=== PATIENT | female | born 1980 ===

== ENCOUNTER 2018-11-06 11:04 | Inpatient (IN) | payer MEDICAID, SELFPAY ==
[2018-11-06] MEDS: Lactated Ringer's 1,000 ML IV ONE ×2 (11:45→12:45)
[2018-11-06 11:46] VITALS: BMI 29.7
[2018-11-06] MEDS ORDERED: OXYTOCIN/0.9 % NS 20 UNIT/1,000 ML BAG IV ONE (11:55)
[2018-11-06] MEDS ORDERED: Oxytocin 30 UNIT in NS 500 ml 30 UNITS/500 ML BAG IV ONE (11:55)
[2018-11-06] MEDS ORDERED: ceFAZolin 2 GM in Sodium Chloride 0.9% 100 ML IVPB ONE (12:00)
[2018-11-06 12:15] LABS: BASO % 0.2 % (0.0-2.0); EOS # 0.1 K/uL (0.0-0.7); HEMOGLOBIN 10.4 g/dL (12.0-16.0); LYMPH # 1.7 K/uL (1.0-4.3); LYMPH % 19.5 % (20.0-40.0); MEAN CELL VOLUME 83.6 fl (81.0-99.0); MEAN CORPUSCULAR HEMOGLOBIN 27.6 pg (27.0-31.0); MEAN PLATELET VOLUME 7.7 fl (7.2-11.7); MONO # 0.7 K/uL (0.0-0.8); MONO % 7.8 % (0.0-10.0); NEUT # 6.1 K/uL (1.8-7.0); NEUT % 71.5 % (50.0-75.0); NRBC % 0.1 % (0.0-0.0); RBC 3.78 Mil/uL (3.80-5.20); RED CELL DISTRIBUTION WIDTH 20.7 % (11.5-14.5); WHITE BLOOD COUNT 8.6 K/uL (4.8-10.8)
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
[2018-11-06] MEDS ORDERED: Morphine 5 mg/10 ml preservative-free Inj(Duramorph) ONE (13:21)
[2018-11-06] MEDS ORDERED: Oxycodone/Acetaminophen 5/325 mg Tab PO PRN ×3 (14:23→16:58)
[2018-11-06] MEDS ORDERED: Lactated Ringer's 1,000 ML IV ONE ×2 (14:25→20:54)
[2018-11-06] MEDS ORDERED: Simethicone 80 mg Chewtab PO SCH (16:00)
[2018-11-06] MEDS ORDERED: Influenza Vaccine 60 mcg/0.5 mL SYR (4YR UP) IM ONE (21:15)
[2018-11-06] MEDS: Simethicone 80 mg Chewtab PO SCH (23:21)
[2018-11-07] MEDS: Simethicone 80 mg Chewtab PO SCH ×4 (04:57→22:17)
[2018-11-07 05:59] LABS: HEMOGLOBIN 9.6 g/dL (12.0-16.0); MEAN CELL VOLUME 84.8 fl (81.0-99.0); MEAN CORPUSCULAR HEMOGLOBIN 27.5 pg (27.0-31.0); MEAN CORPUSCULAR HGB CONC 32.4 g/dL (33.0-37.0); RBC 3.48 Mil/uL (3.80-5.20); RED CELL DISTRIBUTION WIDTH 21.1 % (11.5-14.5); WHITE BLOOD COUNT 10.5 K/uL (4.8-10.8)
[2018-11-07] MEDS: Multivitamin With Minerals Tab PO SCH (08:08)
[2018-11-07] MEDS: Oxycodone/Acetaminophen 5/325 mg Tab PO PRN (08:10)
[2018-11-07] MEDS ORDERED: Multivitamin With Minerals Tab PO SCH (09:00)
--- NOTE | 2018-11-07 09:58 | OBDS ---
DELIVERY PERSONNEL Delivery Doctor: Juliane Galaviz MD [place] Carver: Maddie Barrera RN Anesthesiologist: Dr Silver Resident: Dr Sherrie Ac MATERNAL INFORMATION Delivery Anesthesia: Spinal Medications in Delivery: ancef 2G Estimated Blood Loss (ml): 800 Placenta Cultured: No Maternal Complications: None RN Comments: patient delivered girl via r c/s w r tubal ligation. clamped and taken to warmer, examined by Dr Davis. apgars 9 and 9. then brought to mother for skin to skin, infant latched. patient and infant brought to labor and delivery for recovery. both remained in stable condition. Provider Comments: See Op note LABOR SUMMARY EDC: 11/11/2018 00:00 No. Babies in Womb: 1 LABOR INFORMATION Group B Beta Strep: Negative STAGES OF LABOR Stage 3 hrs: 0 Stage 3 min: 1 CSECTION DELIVERY Primary Indication: Repeat Elective CSection Urgency: Elective CSection Incidence: Repeat Labor: No Labor CSection Incision: Lower Uterine Transverse Sterilization Procedure: [place] BABY A INFORMATION Delivery Date/Time: 11/06/2018 13:53 Method of Delivery: Born in Route : No : N/A Forceps: N/A Vacuum Extraction: N/A Shoulder Dystocia : No SHOULDER DYSTOCIA BABY A Infant Delivery Date/Time: 11/06/2018 13:53 PRESENTATION/POSITION BABY A Presentation: Cephalic PLACENTA INFORMATION BABY A Placenta Delivery Time : 11/06/2018 13:54 INFORMATION BABY A Gestational Age at Delivery: 39.4 Gestational Status: Term Infant Outcome : Liveborn Condition : Stable Infant Sex: Female CORD INFORMATION BABY A Nuchal Cord : N/A
--- NOTE | 2018-11-07 10:04 | OBPPN ---
Datetime: 11/07/2018 06:15 PP Pain Prov: Within normal limits PP Nausea Prov: Denies PP Flatus Prov: No PP BM Prov: No PP Heart Prov: Normal PP Lungs Prov: Normal PP Abdomen/Uterus Prov: Normal PP Lochia Prov: Normal PP Extremities Prov: Normal PP C/S Incision Prov: Normal PP Progress Prov: Normal PP Impression Prov: Normal progression PP Plan Prov: Continue present management PP Progress Note Prov: S: 38 YO s/p with R tubal ligation, POD1. Patient was seen and examined this morning. Patient was laying in bed . She has no complaints. Pain is to lerable with pain medication. [place] c/d/i. Lochia like menses. -Flatus, -BM. O: Vitals reviewed, wnl GEN: NAD, doing well Heart: S1S2 no additional heart sounds Resp: clear breath sounds b/l Abdomen: dressing removed, no erythema or edema noted, Mild pelvic tenderness. Funds below UB, fir m Ext: mild pedal edema, NT Neuro: AAO x 3 A/P: 38 YO , s/p with R tubal ligation POD1. Gave to a baby girl, doing wel l this AM. -cont present management -PO meds for pain as needed -encouraged to ambulate and cont breatfeeding -colace for constipation -c/w diet as tolerated -dressing removed this AM Kathryn Kim, PGY II Agree with above resident note. Patient seen and examined by me this am. --Dr. Galaviz IP PP Procedures: None Vital Signs Provider PP: Reviewed; Within Normal Limits
[2018-11-08] MEDS: Simethicone 80 mg Chewtab PO SCH ×4 (04:07→21:35)
[2018-11-08] MEDS: Multivitamin With Minerals Tab PO SCH (09:05)
--- NOTE | 2018-11-08 10:12 | OBPPN ---
Datetime: 11/08/2018 06:09 PP Nausea Prov: Denies PP Flatus Prov: Yes PP BM Prov: No PP Heart Prov: Normal PP Lungs Prov: Normal PP Abdomen/Uterus Prov: Normal PP Lochia Prov: Normal PP C/S Incision Prov: Normal PP Progress Prov: Normal PP Impression Prov: Normal progression PP Plan Prov: Continue present management PP Progress Note Prov: 38 y/o , POD 2 s/p with R tubal ligation. Patient was seen a nd examined this morning. Patient was laying in bed awake with baby at bedside. Pain is tolerable wit h pain medication. Lochia like menses. -Flatus, -BM. Denies f/c/n/v/cp/sob/lightheadedness or dizzine ss. Vitals reviewed, wnl GEN: NAD, doing well Heart: S1S2 RRR Resp: cta b/l Abdomen: incision-c/d/i; soft, appropriate tenderness. Funds firm _ UB; no rigidity or guarding Ext: calves nontender Neuro: AAO x 3 38 y/o , POD 2 clinically stable, s/p with R tubal ligation -cont present management -PO meds for pain as needed -encouraged to ambulate and -colace for constipation -c/w diet as tolerated Case discussed with attending Patient seen and examined by me this am. Agree with above resident note. --Dr. Guillaume Cage, PGY-1, FM IP PP Procedures: None Vital Signs Provider PP: Reviewed; Within Normal Limits
[2018-11-09] MEDS: Simethicone 80 mg Chewtab PO SCH ×2 (04:12→08:33)
--- NOTE | 2018-11-09 07:34 | OBPPN ---
Datetime: 11/09/2018 06:19 PP Pain Prov: Within normal limits PP Nausea Prov: Denies PP Flatus Prov: Yes PP BM Prov: No PP Heart Prov: Normal PP Lungs Prov: Normal PP Abdomen/Uterus Prov: Normal PP Lochia Prov: Normal PP Extremities Prov: Normal PP Impression Prov: Normal progression PP Plan Prov: Continue present management; Discharge PP Progress Note Prov: 38 y/o , POD 3 s/p with R tubal ligation. Patient was seen a nd examined this morning. Patient has no complaints. Pain is improving _ tolerable with pain medicati on regimen. Lochia like menses. -Flatus, -BM. Denies f/c/n/v/cp/sob/lightheadedness or dizziness. VS: wnl wnl GEN: laying in bed awake with baby at bedside Heart: S1S2 RRR Resp: cta b/l, no wheeze Abdomen: incision-c/d/i; soft, appropriate tenderness. Funds firm _ UB; no rigidity or guarding Ext: calves nonedematous, nontender Neuro: AAO x 3 38 y/o , POD 3 clinically stable, s/p with R tubal ligation -c/w present management -c/w PO meds for pain as needed -encouraged to ambulate and -colace for constipation -c/w diet as tolerated -Discharge today Case discussed with attending -Genevieve Cage OB Hospitalist Addendum: Pt seen and examined by me. Agree a/ above. POD 3 s/p repeat c/s, BTL, d oing well, breast and bottle feeding. Discharge home today. (ES) IP PP Procedures: None Vital Signs Provider PP: Reviewed; Within Normal Limits
[2018-11-09] MEDS: Oxycodone/Acetaminophen 5/325 mg Tab PO PRN (08:33)
[2018-11-09] MEDS: Multivitamin With Minerals Tab PO SCH (08:33)
[2018-11-09] MEDS ORDERED: Influenza Vaccine (5 YR UP)/PF 60 MCG/0.5 ML SYR IM ONE ×2 (09:00)
[2018-11-09] MEDS ORDERED: Influenza Vaccine 60 mcg/0.5 mL SYR (4YR UP) IM ONE (09:00)
[2018-11-09 17:21] VITALS: BP 108/69; PULSE 88; RESP 20; TEMP 98; O2SAT 98
--- NOTE | 2018-11-11 05:07 | OP ---
PROCEDURE DATE: 11/06/2018 PREOPERATIVE DIAGNOSIS: Term with multiparity, previous section, desired repeat section and unilateral tubal ligation. POSTOPERATIVE DIAGNOSIS: Term with multiparity, previous section, desired repeat section and unilateral tubal ligation, delivered. PROCEDURE: Repeat low-transverse section and right tubal ligation. SURGEON: Todd Galaviz MD REHABILITATION ASSISTANT: Sarika Bal MD ESTIMATED BLOOD LOSS: 800 mL. URINE OUTPUT: 100 mL, clear at the end of procedure. INTRAVENOUS FLUIDS: 1900 mL of lactated Ringer's. ANESTHESIA: Spinal. FINDINGS: A live female with Apgars of 9 and 9, weight 2980 g, delivered in vertex presentation. Amniotic fluid clear and no left tube identified as the patient reported a previous left salpingectomy. DESCRIPTION OF PROCEDURE: The patient was taken to the operating room and given spinal anesthesia without difficulty. She was then prepped and draped in a normal sterile position in the dorsal supine position with the leftward tilt. A Pfannenstiel skin incision was then made with a scalpel through the previous scar and carried through the underlying fascia with the Bovie. The fascia was incised in the midline, and the incision was extended laterally using the Bovie. The inferior aspect of the fascial incision was grasped with Lisa clamps and elevated and the underlying rectus muscles were dissected off sharply with the Bovie and then bluntly. Attention was then turned to the superior aspect of the fascial incision, which in a similar fashion was dissected off with the Bovie and then bluntly. The rectus muscles were meticulously in the midline, tented up and entered with Metzenbaum scissors. This incision was then extended laterally, superiorly and inferiorly paying close attention to the bladder. The bladder blade was inserted. The vesicouterine peritoneum was identified, tented up and entered with Metzenbaum scissors. This incision was extended laterally, and the bladder flap was created digitally. The bladder blade was re-inserted, and the lower uterine segment was incised in a transverse fashion with the scalpel. This incision was extended cephalocaudally bluntly. The was then delivered atraumatically. The nose and the mouth were suctioned on the abdomen. The cord was doubly clamped and cut. The was handed off to the awaiting web applications administrator. Cord blood was then taken. The uterus was exteriorized and cleared of all clots and debris. The uterine incision was then closed with #1 Vicryl in a running locking fashion, and good hemostasis was noted. At this time, attention was then turned to the tubes. No left fallopian tube was identified as the patient reported previous left salpingectomy. The right fallopian tube was identified, and a tubal ligation was then performed with a modified Bybee procedure using a 2-0 chromic suture. A segment of the right fallopian tube was then removed using Metzenbaum scissors, and this was handed off the field for pathology, and the Bovie was used to obtain good hemostasis with copious irrigation of the tube. Copious irrigation was performed. The uterus was returned to the abdomen, and the gutters were cleared of all clots. The peritoneum was then reapproximated with a 2-0 Vicryl in a running fashion, and four further horizontal mattress sutures were then placed in the muscle for reapproximation. Good hemostasis was noted. The fascia was then reapproximated with 0 Vicryl in a running fashion to the midline, and the Bovie was used to create good hemostasis on the subcutaneous fat layer, and this layer was then also closed with four interrupted stitches using a 3-0 plain suture. The skin was closed with a 4-0 Monocryl suture on a Dejuan needle for subcuticular stitch. The incision was covered with Steri-Strips and a sterile dressing. The patient tolerated the procedure well. Sponge, lap, and needle counts were correct x4. Ancef 2 g was given preoperatively. The patient was taken to the recovery room in stable condition. There was no injury to the bladder, bowel, ureter, or baby. Due to the nature of this case, an psychiatric nursing assistant was requested. My psychiatric nursing assistant, Dr. Bal, was present for the entire case from the initial incision to the patient's transfer to the recovery room. She assisted in all aspects of the surgery and provided good exposure to minimize blood loss, and her assistance was vital for the procedure. Todd Galaviz MD [facility] # [id number]
== END 2018-11-09 12:15 | disposition home or self-care (01) | DRG 540 ==
LOC: H.EROB2 11:04 → H.L&D 11:05 → H.EROB2 11:34 → H.L&D 11:35 → H.OB/GYN 16:40
PROVIDERS: ADMIT Obstetrics & Gynecology; ATTEND Obstetrics & Gynecology
PROC: 10D00Z1 Extraction of Products of Conception, Low, Open Approach (ICD-10-PCS; principal; 2018-11-06)
PROC: 0U550ZZ Destruction of Right Fallopian Tube, Open Approach (ICD-10-PCS; 2018-11-06)
PROC: 4A1HXCZ Monitoring of Products of Conception, Cardiac Rate, External Approach (ICD-10-PCS; 2018-11-06)
PROC: 3E02340 Introduction of Influenza Vaccine into Muscle, Percutaneous Approach (ICD-10-PCS; 2018-11-09)
DX: O34.211 Maternal care for low transverse scar from previous cesarean delivery (principal); K59.00 Constipation, unspecified; Z37.0 Single live birth; Z3A.39 39 weeks gestation of pregnancy; Z30.2 Encounter for sterilization; O09.523 Supervision of elderly multigravida, third trimester; Z23 Encounter for immunization; Z87.440 Personal history of urinary (tract) infections